=== PATIENT | female | born 1980 | race Caucasian/White ===

== ENCOUNTER 2016-11-06 21:28 | Emergency (ER) | payer BC ==
[2016-11-06 23:42] LABS: SPECIFIC GRAVITY 1.025 (1.001-1.030); URINE BILIRUBIN NEGATIVE (NEGATIVE); URINE BLOOD NEGATIVE (NEGATIVE); URINE GLUCOSE (UA) NEGATIVE (NEGATIVE); URINE LEUKOCYTE ESTERASE NEGATIVE (NEGATIVE); URINE NITRITE NEGATIVE (NEGATIVE); URINE PROTEIN NEGATIVE (NEGATIVE); URINE UROBILINOGEN NORMAL (0-1 mg/dl)
[2016-11-06 23:43] LABS: HCG,QUALITATIVE URINE NEGATIVE; URINE APPEARANCE CLEAR; URINE COLOR YELLOW
[2016-11-07 00:17] LABS: ABSOLUTE NEUTROPHIL COUNT 4.6 K/mm3 (1.8-7.7); BASO # 0.1 K/mm3 (0.0-0.2); BASO % 1.1 % (0.2-1.0); EOS # 0.2 (0.0-0.5); EOS % 2.6 % (0.9-2.9); HEMATOCRIT 42.8 % (37.0-47.0); HEMOGLOBIN 13.6 gm/l (12.0-16.0); IMM NEUT% 0.2 % (0-1); LYMPH % 34.8 % (15-45); MEAN CORPUSCULAR HEMOGLOBIN 30.5 pg (27.0-31.0); MEAN CORPUSCULAR HGB CONC 31.8 g/dl (33.0-37.0); MEAN PLATELET VOLUME 9.2 fl (7.4-10.4); MONO # 0.6 (0.0-0.8); MONO % 7.4 % (4-12); NEUT % 53.9 % (43-75); PLATELET COUNT 291 K/mm3 (130-400); RED CELL DISTRIBUTION WIDTH 12.9 % (11.5-14.5)
[2016-11-07] MEDS ORDERED: KETOROLAC TROMETHAMINE 30 MG/ML 1 ML VIAL ONE (00:24)
[2016-11-07 00:27] LABS: ALB/GLOB RATIO 1.7 (>1.0); ALBUMIN 4.8 gm/dL (3.5-5.7); CALCIUM 10.6 mg/dL (8.6-10.3)
--- NOTE | 2016-11-07 08:02 | US ---
PELVIC LIMITED HISTORY: Right lower quadrant pain for one week. COMPARISONS: None FINDINGS: Multiple grayscale, color-flow and duplex Doppler images during Limited pelvic ultrasound are obtained. Only evaluation of the right ovary is requested. Right ovary measures 2.8 x 2.2 x 2.2 cm with blood flow. Moderate amount of simple free fluid is present in the cul-de-sac. IMPRESSION: Normal right ovary. Remainder of the limited visualized pelvis is unremarkable. Follow-up as clinically warranted. Preliminary report was provided by [facility] at approximately 0245 hours on 11/07/2016.
--- NOTE | 2016-11-07 08:04 | US ---
ABDOMINAL-LIMITED HISTORY: Right lower quadrant pain for one week. COMPARISONS: None. FINDINGS: Multiple grayscale and color flow images during right lower quadrant ultrasound are obtained. Appendix is not visualized. No secondary signs of appendicitis are seen. No adenopathy or free fluid. IMPRESSION: Nonvisualization of the appendix. Appendicitis cannot be excluded on basis of this exam, and if there is further clinical concern for this, CT would be recommended. No other specific cause for the patient's pain is identified. As clinical and radiographic follow-up would be recommended. Preliminary report was provided by [employer] at approximately 0222 hours on 11/07/2016.
== END 2016-11-07 03:37 | disposition home or self-care (01) ==
LOC: ED 21:28
DX: N83.209 Unspecified ovarian cyst, unspecified side (principal); E06.3 Autoimmune thyroiditis